=== PATIENT | male | born 1985 | race Caucasian/White ===

== ENCOUNTER 2018-04-13 17:51 | Emergency (ER) | payer MEDICAID ==
[~2018-04-13] VITALS: Ht 170.2 cm; Wt 81.8 kg
[2018-04-13] MEDS ORDERED: LIDOCAINE-MPF 1%, 5ML INFIL ONE (18:30)
[2018-04-13] MEDS ORDERED: LIDOCAINE-MPF 2% ,5ML ONE (18:52)
[2018-04-13] MEDS ORDERED: BUPIVACAINE 0.25% ONE (18:52)
[2018-04-13] MEDS ORDERED: BACITRACIN ZINC OINT 500U/GM, 0.9 GM ONE (19:55)
[2018-04-13 20:02] VITALS: BP 121/77
== END 2018-04-13 20:05 | disposition home or self-care (01) ==
LOC: ED 18:52
DX: S61.212A Laceration without foreign body of right middle finger without damage to nail, initial encounter (principal); S61.214A Laceration without foreign body of right ring finger without damage to nail, initial encounter; W23.1XXA Caught, crushed, jammed, or pinched between stationary objects, initial encounter; Y93.89 Activity, other specified; Y92.098 Other place in other non-institutional residence as the place of occurrence of the external cause; Y99.8 Other external cause status
CPT/HCPCS: 12001; 99284